=== PATIENT | male | born 1965 | race Caucasian/White ===

== ENCOUNTER 2021-08-15 17:15 | Observation (INO) | payer MEDICAID ==
[~2021-08-15] VITALS: Ht 190.5 cm; Wt 100.7 kg
[2021-08-15 17:42] LABS: HEMATOCRIT 35 % (40-54); HEMOGLOBIN 11.5 g/dL (13.3-17.7); MEAN CORPUSCULAR HEMOGLOBIN 25 pg (25-34); MEAN CORPUSCULAR HGB CONC 33 g/dL (32-36); MEAN CORPUSCULAR VOLUME 77 fL (80-99); WHITE BLOOD COUNT 6.6 10^3/uL (4.3-11.0)
[2021-08-15 17:43] LABS: BASOPHILS # (AUTO) 0.1 10^3/uL (0.0-0.1); BASOPHILS % (AUTO) 1 % (0-10); EOSINOPHILS # (AUTO) 0.3 10^3/uL (0.0-0.3); EOSINOPHILS % (AUTO) 4 % (0-10); LYMPHOCYTES % (AUTO) 45 % (12-44); MONOCYTES # (AUTO) 0.5 X 10^3 (0.0-1.0); MONOCYTES % (AUTO) 7 % (0-12); NEUTROPHILS # (AUTO) 2.9 X 10^3 (1.8-7.8); NEUTROPHILS % (AUTO) 44 % (42-75); PLATELET COUNT 390 10^3/uL (130-400)
[2021-08-15] MEDS ORDERED: RT-ALBUTEROL/IPRATROPIUM 3 ML (DUONEB) VIAL INH ONE (17:45)
[2021-08-15] MEDS ORDERED: NS IV 1000 ML 1,000 ML IV SCH ×2 (17:45)
--- NOTE | 2021-08-15 17:49 | ED Cardiac General ---
History of Present Illness General Chief Complaint: Respiratory Problems Stated Complaint: SOB,FATIGUE Nursing Triage Note: PT AMBULATE TO ROOM FS06 WITH C/O SOB X1 MONTH THAT IS WORSE AT NIGHT. PT STATES IT IS WORSE TODAY. History of Present Illness Date Seen by Provider: Aug 15, 2021 Time Seen by Provider: 17:25 Initial Comments 55 yr M with PMH of open heart surgery when he was younger, multiple stents, last stent in 2012 or 2013. Pt has been having SOB over the past 1 month which has been worse at night when he lays down, but it has been worsening further today. Pt does not use home oxygen. Pt feels chest pressure but denies actual chest pain. Pt's cardiologists are in [place]. Pt's states he is very resistant to seeing doctors or going to the hospital. Pt's also states pt's dog in an accident a week ago, and he has also been feeling anxious and depressed since then, with the anxiety adding to the symptoms. Upon further questioning, it doesn't appear that the pt is consistently compliant with all his medications. Denies fever, recent COVID, nausea, vomiting, abdominal pain, diarrhea, headache, dizziness, cough, URI symptoms, recent illness, sick contacts. Allergies and Home Medications Allergies Coded Allergies: alprazolam (Verified Allergy, Unknown, 08/15/21) ketorolac (Verified Allergy, Unknown, 08/15/21) Patient Home Medication List Home Medication List Reviewed: Yes Review of Systems Review of Systems Constitutional: no symptoms reported EENTM: No Symptoms Reported Respiratory: Orthopnea, Shortness of Air, SOA With Exertion Cardiovascular: Chest Pain Gastrointestinal: No Symptoms Reported Genitourinary: No Symptoms Reported Musculoskeletal: no symptoms reported Skin: no symptoms reported Psychiatric/Neurological: No Symptoms Reported Endocrine: No Symptoms Reported Hematologic/Lymphatic: No Symptoms Reported Past Mwhklqh-Rbfoqg-Mmzqji Hx Patient Social History Tobacco Use?: Yes Tobacco type used: Cigarettes Smoking Status: Never a Smoker Smokeless Tobacco Frequency: Never a User Use of E-Cig and/or Vaping dev: No Use of E-Cig and/or Vaping Cl: Never a User Substance use?: Yes Substance type: Marijuana Substance frequency: Daily Alcohol Use?: No Pt feels they are or have been: No Physical Exam Vital Signs Vital Signs - First Documented 08/15/21 17:20 Temp 36.6 Pulse 74 Resp 18 B/P (MAP) 142/85 (104) Pulse Ox 100 O2 Delivery Room Air Capillary Refill : Less Than 3 Seconds Height, Weight, BMI Height: '" Weight: lbs. oz. kg; 28.00 BMI Method: General Appearance: Mild Distress, Obese HEENT: PERRL/EOMI, TMs Normal, Pharynx Normal Neck: Full Range of Motion, Normal Inspection, Non Tender, Supple Respiratory: Chest Non Tender, No Accessory Muscle Use, Rales, Wheezing Cardiovascular: Regular Rate, Rhythm, No Edema, Normal Peripheral Pulses Gastrointestinal: Normal Bowel Sounds, No Organomegaly, No Pulsatile Mass, Non Tender, Soft Extremity: Normal Capillary Refill, Normal Range of Motion Neurologic/Psychiatric: Alert, Oriented x3, No Motor/Sensory Deficits, Normal Mood/Affect Skin: Normal Color Focused Exam Lactate Level 08/15/21 18:19: Lactic Acid Level 1.73 Lactic Acid Level Laboratory Tests Test 08/15/21 18:19 Lactic Acid Level 1.73 MMOL/L (0.50-2.00) Progress/Results/Core Measures Results/Orders Lab Results Laboratory Tests Test 08/15/21 17:35 08/15/21 18:19 08/15/21 19:04 Range/Units White Blood Count 6.6 4.3-11.0 10^3/uL Red Blood Count 4.59 4.30-5.52 10^6/uL Hemoglobin 11.5 L 13.3-17.7 g/dL Hematocrit 35 L 40-54 % Mean Corpuscular Volume 77 L 80-99 fL Mean Corpuscular Hemoglobin 25 25-34 pg Mean Corpuscular Hemoglobin Concent 33 32-36 g/dL Red Cell Distribution Width 17.2 H 10.0-14.5 % Platelet Count 390 130-400 10^3/uL Mean Platelet Volume 9.0 9.0-12.2 fL Immature Granulocyte % (Auto) 0 % Neutrophils (%) (Auto) 44 42-75 % Lymphocytes (%) (Auto) 45 H 12-44 % Monocytes (%) (Auto) 7 0-12 % Eosinophils (%) (Auto) 4 0-10 % Basophils (%) (Auto) 1 0-10 % Neutrophils # (Auto) 2.9 1.8-7.8 X 10^3 Lymphocytes # (Auto) 3.0 1.0-4.0 X 10^3 Monocytes # (Auto) 0.5 0.0-1.0 X 10^3 Eosinophils # (Auto) 0.3 0.0-0.3 10^3/uL Basophils # (Auto) 0.1 0.0-0.1 10^3/uL Immature Granulocyte # (Auto) 0.0 0.0-0.1 10^3/uL Prothrombin Time 12.3 12.2-14.7 SEC INR Comment 0.9 0.8-1.4 Activated Partial Thromboplast Time 24 24-35 SEC D-Dimer 1.06 H 0.00-0.49 UG/ML Sodium Level 136 135-145 MMOL/L Potassium Level 4.4 3.6-5.0 MMOL/L Chloride Level 103 98-107 MMOL/L Carbon Dioxide Level 18 L 21-32 MMOL/L Anion Gap 15 H 5-14 MMOL/L Blood Urea Nitrogen 20 H 7-18 MG/DL Creatinine 1.10 0.60-1.30 MG/DL Estimat Glomerular Filtration Rate 80 BUN/Creatinine Ratio 18 Glucose Level 135 H 70-105 MG/DL Calcium Level 9.9 8.5-10.1 MG/DL Corrected Calcium 10.0 8.5-10.1 MG/DL Magnesium Level 1.6 1.6-2.4 MG/DL Total Bilirubin 0.3 0.1-1.0 MG/DL Aspartate Amino Transf (AST/SGOT) 16 5-34 U/L Alanine Aminotransferase (ALT/SGPT) 10 0-55 U/L Alkaline Phosphatase 101 40-136 U/L Troponin I < 0.30 <0.30 NG/ML Pro-B-Type Natriuretic Peptide 198.6 H <75.0 PG/ML Total Protein 7.1 6.4-8.2 GM/DL Albumin 3.9 3.2-4.5 GM/DL Lactic Acid Level 1.73 0.50-2.00 MMOL/L Urine Color YELLOW Urine Clarity CLEAR Urine pH 6.5 5-9 Urine Specific [place] 1.015 L 1.016-1.022 Urine Protein NEGATIVE NEGATIVE Urine Glucose (UA) NEGATIVE NEGATIVE Urine Ketones NEGATIVE NEGATIVE Urine Nitrite NEGATIVE NEGATIVE Urine Bilirubin NEGATIVE NEGATIVE Urine Urobilinogen 0.2 < = 1.0 MG/DL Urine Leukocyte Esterase NEGATIVE NEGATIVE Urine RBC (Auto) NEGATIVE NEGATIVE Urine RBC 10-25 H /HPF Urine WBC NONE /HPF Urine Crystals PRESENT H /LPF Urine Calcium Oxalate Crystals MODERATE H /LPF Urine Bacteria TRACE /HPF Urine Casts NONE /LPF Urine Mucus LARGE H /LPF Urine Culture Indicated NO Urine Opiates Screen NEGATIVE NEGATIVE Urine Oxycodone Screen NEGATIVE NEGATIVE Urine Methadone Screen NEGATIVE NEGATIVE Urine Propoxyphene Screen NEGATIVE NEGATIVE Urine Barbiturates Screen NEGATIVE NEGATIVE Ur Tricyclic Antidepressants Screen NEGATIVE NEGATIVE Urine Phencyclidine Screen NEGATIVE NEGATIVE Urine Amphetamines Screen POSITIVE H NEGATIVE Urine Methamphetamines Screen POSITIVE H NEGATIVE Urine Benzodiazepines Screen NEGATIVE NEGATIVE Urine Cocaine Screen NEGATIVE NEGATIVE Urine Cannabinoids Screen POSITIVE H NEGATIVE My Orders Orders - KARI MELISSA MD Cbc With Automated Diff (08/15/21 17:38) Magnesium (08/15/21 17:38) Chest 1 View Ap/Pa Only (08/15/21 17:38) Ekg Tracing (08/15/21 17:38) Comprehensive Metabolic Panel (08/15/21 17:38) Protime With Inr (08/15/21 17:38) Partial Thromboplastin Time (08/15/21 17:38) O2 (08/15/21 17:38) Monitor-Rhythm Ecg Trace Only (08/15/21 17:38) Ed Iv/Invasive Line Start (08/15/21 17:38) Fibrin Degradation Products (08/15/21 17:38) Troponin I Fs (08/15/21 17:38) Probnp Fs (08/15/21 17:38) Albuterol/Ipra Inhalation Soln (Duoneb I (08/15/21 17:45) Svn Small Volume Nebulizer (08/15/21 17:39) Ed Iv/Invasive Line Start (08/15/21 17:40) Ns Iv 1000 Ml (Sodium Chloride 0.9%) (08/15/21 17:45) Ns Iv 1000 Ml (Sodium Chloride 0.9%) (08/15/21 17:45) Nitroglycerin 0.4 Mg Btl 25's (Nitrostat (08/15/21 18:00) Clopidogrel Tablet (Plavix Tablet) (08/15/21 18:00) Ua Culture If Indicated (08/15/21 18:13) Drug Screen Stat (Urine) (08/15/21 18:13) Lactic Acid Analyzer (08/15/21 18:13) Ct Angio Chest W (08/15/21 18:15) Iohexol Injection (Omnipaque 350 Mg/Ml 1 (08/15/21 18:30) Received Contrast (Hold Metformin- Contr (08/15/21 18:30) Sodium Chloride Flush (Catheter Flush Sy (08/15/21 18:30) Ns (Ivpb) (Sodium Chloride 0.9% Ivpb Bag (08/15/21 18:30) Troponin I Fs (08/15/21 19:14) Ekg Tracing (08/15/21 19:15) Albuterol/Ipra Inhalation Soln (Duoneb I (08/15/21 19:20) Svn Small Volume Nebulizer (08/15/21 19:20) Medications Given in ED Current Medications Medications Dose Ordered Sig/Shweta Route Start Time Stop Time Status Last Admin Dose Admin Albuterol/ Ipratropium 3 ml ONCE ONCE INH 08/15/21 17:45 08/15/21 17:46 DC 08/15/21 17:46 3 ML Clopidogrel Bisulfate 300 mg ONCE ONCE PO 08/15/21 18:00 08/15/21 18:01 DC 08/15/21 17:58 300 MG Iohexol 100 ml ONCE ONCE IV 08/15/21 18:30 08/15/21 18:31 DC 08/15/21 18:56 100 ML Nitroglycerin 0.4 mg UD PRN SL 08/15/21 18:00 08/15/21 17:58 0.4 MG Sodium Chloride 10 ml NEEDED PRN IV 08/15/21 18:30 08/15/21 18:56 10 ML Sodium Chloride 100 ml ONCE ONCE IV 08/15/21 18:30 08/15/21 18:31 DC 08/15/21 18:56 100 ML Vital Signs/I&O 08/15/21 08/15/21 08/15/21 17:20 17:20 19:00 Temp 36.6 Pulse 74 72 Resp 18 15 B/P (MAP) 142/85 (104) 127/109 Pulse Ox 100 98 O2 Delivery Room Air Room Air Room Air Blood Pressure Mean: 104 Progress Progress Note : Progress Note 1. SOB/ CHEST PRESSURE: COPD EXACERBATION vs CAD - Pt has a PACEMAKER - CXR: COPD/ EKG - Troponin normal - Labs: pro-BNP elevated/ UDS/ UA - Pt is allergic tp NSAIDs and Xanax, so gave Clopidogrel 300mg STAT and Nitrate s.l. STAT - NS IVF - Duo Neb STAT & NC O2: 2L: Pt feels a little better with both of these. - ProBNP elevated: 198 - Nitrate 0.4 s.l. STAT with some improvement in symptoms - Pt does not appear to be fluid overloaded on exam - Pt will need transfer to [place] for cardiology consult, pacemaker interrogation, telemetry monitoring. Pt and agree to plan.Accepted by hospitalist 2. ELEVATED D-DIMER: - D-dimer is 1.06 - CTA CHEST: no PE - Pt will need bilateral doppler u/s at [place]. Initial ECG Impression Date: Aug 15, 2021 Initial ECG Impression Time: 17:32 Initial ECG Rate: 63 Initial ECG Rhythm: Normal Sinus Initial ECG Intervals: FL (possible R wave progression) Initial ECG Impression: Nonspecific Changes Initial ECG Comparisson: No Previous ECG Available Diagnostic Imaging Diagonstic Imaging: Xray, CT Plain Films/CT/US/NM/MRI: chest Comments [facility]. [place], [place] NAME: WENDY SÁNCHEZ [facility] REC#: [id number] PT STATUS: REG ER : 1965 PHYSICIAN: KARI MELISSA MD ADMIT DATE: 08/15/21/ER FS Signed Date of Exam:08/15/21 CHEST 1 VIEW AP/PA ONLY INDICATION: Shortness of breath and fatigue. COMPARISON: No comparison available. FINDINGS: The patient is status post sternotomy. A pacemaker device is also present. Heart size is appropriate without evidence of current edema or failure. There is flattening of the diaphragms compatible with air trapping. There is a granuloma at the left lung base. There are no findings of pneumonia or an effusion. There is no pneumothorax. Prior left shoulder arthroplasty noted. There is no acute osseous abnormality. IMPRESSION: 1. Apparent features of COPD without acute superimposed cardiopulmonary process. There are no findings of pneumonia or edema. 2. Previous operative changes of sternotomy. Pacemaker device is also present. Dictated by: Dictated on workstation # [id number] Dict: 08/15/211800 Trans: 08/15/211821 PJE [id number] Interpreted by: GINA RICHARD MD Electronically signed by: GINA RICHARD MD 08/15/211821 NAME: WENDY SÁNCHEZ [facility] REC#: [id number] PT STATUS: REG ER : 1965 PHYSICIAN: KARI MELISSA MD ADMIT DATE: 08/15/21/ER FS Draft Date of Exam:08/15/21 CT ANGIO CHEST W PROCEDURE: CT angiography of the chest with contrast. TECHNIQUE: Multiple contiguous axial images were obtained through the chest after uneventful bolus administration of intravenous contrast. 3D reconstructed CTA MIP acquisitions were also performed. Auto Exposure Controls were utilized during the CT exam to meet ALARA standards for radiation dose reduction. INDICATION: Elevated d-dimer. Shortness of breath. Evaluate for pulmonary embolism. COMPARISON: Chest radiograph from earlier in the same day. FINDINGS: There are no CT angiographic findings of a filling defect within the pulmonary arteries to suggest a pulmonary embolism. There is no evidence of right ventricular strain. There is no aortic dissection or aneurysm. There is mild aortic atherosclerosis. Heart size appears appropriate. There is no pericardial collection. Pacemaker device is present. There are small calcified left hilar and subcarinal lymph nodes. There is no pathologic adenopathy. There are apparent background features of mild centrilobular emphysema with some mild pulmonary hyperinflation. There is no suspicious nodule or mass. There is a calcified granuloma within the left lower lobe. There are no findings of pneumonia, effusion or pneumothorax. The upper abdomen demonstrates no acute process. There is a small hiatal hernia. There are no findings of an acute osseous abnormality within the thorax. There are degenerative endplate changes throughout the thoracic spine. IMPRESSION: 1. No CT angiographic evidence of pulmonary embolism. 2. No acute aortic syndrome. 3. Pulmonary hyperinflation secondary to COPD without evidence of pneumonia or edema. 4. Evidence of prior granulomatous exposure. 5. No findings of an acute osseous abnormality. Dictated on workstation # [id number] Dict: 08/15/211900 Trans: 08/15/211914 PJE [id number] Departure Impression Primary Impression: Shortness of breath Additional Impressions: Chest pressure COPD exacerbation Elevated d-dimer Elevated brain natriuretic peptide (BNP) level Disposition: 30 STILL A PATIENT Condition: Stable Admissions Decision to Admit Reason: Admit from ER (General) Decision to Admit/Date: Aug 15, 2021 Time/Decision to Admit Time: 18:30 Transfer Transfer Reason: Exceeds level of care Time Spoke to Accepting Phy: 19:21 Transfer Progress Notes Discussed with Dr Hodges and accepted for transfer to [facility]- telemetry Transfer Facility: [facility] Method of Transfer: EMS Departure-Patient Inst. Referrals: JOSE ANTONIO PETERSON MD (PCP/Family) Primary Care Physician KARI MELISSA MD Aug 15, 2021 17:49
[2021-08-15 17:57] LABS: ALBUMIN 3.9 GM/DL (3.2-4.5); BILIRUBIN,TOTAL 0.3 MG/DL (0.1-1.0); CALCIUM 9.9 MG/DL (8.5-10.1); CREATININE SERUM 1.1 MG/DL (0.60-1.30); MAGNESIUM 1.6 MG/DL (1.6-2.4); POTASSIUM 4.4 MMOL/L (3.6-5.0); TOTAL PROTEIN 7.1 GM/DL (6.4-8.2)
[2021-08-15] MEDS ORDERED: NITROGLYCERIN 0.4 MG SL TABS BTL 25'S SL PRN ×2 (18:00→21:45)
[2021-08-15] MEDS ORDERED: CLOPIDOGREL 300 MG (PLAVIX) TABLET PO ONE (18:00)
[2021-08-15 18:05] LABS: PROTHROMBIN TIME PATIENT 12.3 SEC (12.2-14.7)
[2021-08-15 18:06] LABS: INR 0.9 (0.8-1.4)
--- NOTE | 2021-08-15 18:12 | Diagnostic Imaging Report ---
INDICATION: Shortness of breath and fatigue. COMPARISON: No comparison available. FINDINGS: The patient is status post sternotomy. A pacemaker device is also present. Heart size is appropriate without evidence of current edema or failure. There is flattening of the diaphragms compatible with air trapping. There is a granuloma at the left lung base. There are no findings of pneumonia or an effusion. There is no pneumothorax. Prior left shoulder arthroplasty noted. There is no acute osseous abnormality. IMPRESSION: 1. Apparent features of COPD without acute superimposed cardiopulmonary process. There are no findings of pneumonia or edema. 2. Previous operative changes of sternotomy. Pacemaker device is also present. Dictated by: Dictated on workstation # [id number]
[2021-08-15] MEDS ORDERED: IOHEXOL 350 MG/ML 150 ML (OMNIPAQUE 350) VIAL IV ONE (18:30)
[2021-08-15] MEDS ORDERED: NS 100 ML (IVPB) BAG IV ONE (18:30)
[2021-08-15] MEDS ORDERED: CATHETER FLUSH 10 ML SYR IV PRN (18:30)
[2021-08-15] MEDS ORDERED: HOLD METFORMIN - RECEIVED CONTRAST 20 ML VIAL IV SCH (18:30)
[2021-08-15 19:06] LABS: BILIRUBIN,URINE NEGATIVE (NEGATIVE); CLARITY,URINE CLEAR; COLOR,URINE YELLOW; GLUCOSE, URINE (UA) NEGATIVE (NEGATIVE); KETONES,URINE NEGATIVE (NEGATIVE); LEUKOCYTE ESTERASE ,URINE NEGATIVE (NEGATIVE); NITRITE,URINE NEGATIVE (NEGATIVE); PH,URINE 6.5 (5-9); PROTEIN,URINE NEGATIVE (NEGATIVE)
[2021-08-15 19:12] LABS: BACTERIA,URINE TRACE /HPF; CALCIUM OXALATE CRYSTALS,UR MODERATE /LPF
--- NOTE | 2021-08-15 19:15 | Diagnostic Imaging Report ---
PROCEDURE: CT angiography of the chest with contrast. TECHNIQUE: Multiple contiguous axial images were obtained through the chest after uneventful bolus administration of intravenous contrast. 3D reconstructed CTA MIP acquisitions were also performed. Auto Exposure Controls were utilized during the CT exam to meet ALARA standards for radiation dose reduction. INDICATION: Elevated d-dimer. Shortness of breath. Evaluate for pulmonary embolism. COMPARISON: Chest radiograph from earlier in the same day. FINDINGS: There are no CT angiographic findings of a filling defect within the pulmonary arteries to suggest a pulmonary embolism. There is no evidence of right ventricular strain. There is no aortic dissection or aneurysm. There is mild aortic atherosclerosis. Heart size appears appropriate. There is no pericardial collection. Pacemaker device is present. There are small calcified left hilar and subcarinal lymph nodes. There is no pathologic adenopathy. There are apparent background features of mild centrilobular emphysema with some mild pulmonary hyperinflation. There is no suspicious nodule or mass. There is a calcified granuloma within the left lower lobe. There are no findings of pneumonia, effusion or pneumothorax. The upper abdomen demonstrates no acute process. There is a small hiatal hernia. There are no findings of an acute osseous abnormality within the thorax. There are degenerative endplate changes throughout the thoracic spine. IMPRESSION: 1. No CT angiographic evidence of pulmonary embolism. 2. No acute aortic syndrome. 3. Pulmonary hyperinflation secondary to COPD without evidence of pneumonia or edema. 4. Evidence of prior granulomatous exposure. 5. No findings of an acute osseous abnormality. Dictated by: Dictated on workstation # [id number]
[2021-08-15 19:19] LABS: AMPHETAMINE SCREEN, URINE POSITIVE (NEGATIVE); BARBITURATE SCREEN URINE NEGATIVE (NEGATIVE); BENZODIAZEPINES SCREEN URINE NEGATIVE (NEGATIVE); CANNABINOID SCREEN, URINE POSITIVE (NEGATIVE); COCAINE SCREEN URINE NEGATIVE (NEGATIVE); METHADONE STAT NEGATIVE (NEGATIVE); METHAMPHETAMINE SCREEN URINE S POSITIVE (NEGATIVE); OPIATE SCREEN URINE NEGATIVE (NEGATIVE); OXYCODONE STAT NEGATIVE (NEGATIVE); PROPOXYPHENE STAT NEGATIVE (NEGATIVE); TRICYCLIC ANTIDEPRESSANTS SCRE NEGATIVE (NEGATIVE)
[2021-08-15] MEDS ORDERED: RT-ALBUTEROL/IPRATROPIUM 3 ML (DUONEB) VIAL INH STA (19:20)
[2021-08-15 20:24] VITALS: BP 157/80
[2021-08-15] MEDS ORDERED: ENOXAPARIN 60 MG/0.6 ML (LOVENOX) SYR SC SCH (21:45)
[2021-08-15] MEDS ORDERED: ASPIRIN 325 MG (5 GR) TABLET PO ONE (21:45)
[2021-08-15] MEDS: NS IV 1000 ML 1,000 ML IV SCH (22:25)
[2021-08-16] MEDS: RT-ALBUTEROL/IPRATROPIUM 3 ML (DUONEB) VIAL INH SCH ×4 (03:00→10:54)
[2021-08-16 05:05] LABS: BASOPHILS # (AUTO) 0.1 10^3/uL (0.0-0.1); BASOPHILS % (AUTO) 1 % (0-10); EOSINOPHILS # (AUTO) 0.3 10^3/uL (0.0-0.3); EOSINOPHILS % (AUTO) 5 % (0-10); HEMATOCRIT 35 % (40-54); LYMPHOCYTES # (AUTO) 2.4 10^3/uL (1.0-4.0); LYMPHOCYTES % (AUTO) 39 % (12-44); MEAN CORPUSCULAR HEMOGLOBIN 25 pg (25-34); MEAN CORPUSCULAR HGB CONC 32 g/dL (32-36); MEAN CORPUSCULAR VOLUME 79 fL (80-99); MEAN PLATELET VOLUME 8.9 fL (9.0-12.2); MONOCYTES # (AUTO) 0.5 10^3/uL (0.0-1.0); MONOCYTES % (AUTO) 8 % (0-12); NEUTROPHILS # (AUTO) 2.8 10^3/uL (1.8-7.8); NEUTROPHILS % (AUTO) 47 % (42-75); PLATELET COUNT 367 10^3/uL (130-400)
[2021-08-16 05:19] LABS: CHLORIDE 110 MMOL/L (98-107)
[2021-08-16 05:20] LABS: SODIUM 138 MMOL/L (135-145)
[2021-08-16 05:21] LABS: GLUCOSE 93 MG/DL (70-105)
[2021-08-16 05:23] LABS: CARBON DIOXIDE 18 MMOL/L (21-32)
[2021-08-16 05:25] LABS: CREATININE SERUM 0.94 MG/DL (0.60-1.30); GFR ESTIMATED 97
[2021-08-16 05:26] LABS: BUN/CREATININE RATIO 17
[2021-08-16] MEDS: NS IV 1000 ML 1,000 ML IV SCH (07:10)
--- NOTE | 2021-08-16 08:50 | Consultation-Cardiology ---
HPI-Cardiology Cardiology Consultation Date of Consultation 08/16/21 Date of Admission Time Seen by Provider: 08:47 Indication: Shortness of breath HPI 55 years old gentleman with extensive cardiac history, patient reporting that he has a total of [address] Trevino in [place], has been having increasing dyspnea mainly at night when he lay down flat. Denied any chest pain. No palpitation. No syncope. Came into the emergency room and he was admitted, monitored overnight, cardiac enzymes were negative. Home Medications & Allergies Allergies: Coded Allergies: alprazolam (Verified Allergy, Unknown, 08/15/21) ketorolac (Verified Allergy, Unknown, 08/15/21) Home Medication List Reviewed: Yes [id number] Hx Patient Social History Smoking Status: Light Tobacco Smoker Have you traveled recently?: No Alcohol Use?: No Substance type: Amphetamines, Methamphetamine, Marijuana Immunizations Up To Date Date of Influenza Vaccine: Mar 26, 2021 Past Medical History Discussed below Family Medical History Family Medical Hx Noncontributory Review of Systems-General Review of Systems Constitutional: no symptoms reported EENTM: see HPI, no symptoms reported Respiratory: see HPI; No cough, No dyspnea on exertion, No hemoptysis; orthopnea; No phlegm, No short of breath, No stridor, No wheezing, No other Cardiovascular: see HPI; No chest pain, No edema, No Hx of Intervention, No palpitations, No syncope, No vascular heart diseas, No other Gastrointestinal: no symptoms reported, see HPI Genitourinary: no symptoms reported, see HPI Musculoskeletal: no symptoms reported Skin: no symptoms reported Psychiatric/Neurological: No Symptoms Reported Reviewed Test Results Reviewed Test Results Lab Laboratory Tests Test 08/15/21 17:35 08/15/21 18:19 08/15/21 19:04 08/15/21 19:25 Range/Units White Blood Count 6.6 4.3-11.0 10^3/uL Red Blood Count 4.59 4.30-5.52 10^6/uL Hemoglobin 11.5 L 13.3-17.7 g/dL Hematocrit 35 L 40-54 % Mean Corpuscular Volume 77 L 80-99 fL Mean Corpuscular Hemoglobin 25 25-34 pg Mean Corpuscular Hemoglobin Concent 33 32-36 g/dL Red Cell Distribution Width 17.2 H 10.0-14.5 % Platelet Count 390 130-400 10^3/uL Mean Platelet Volume 9.0 9.0-12.2 fL Immature Granulocyte % (Auto) 0 % Neutrophils (%) (Auto) 44 42-75 % Lymphocytes (%) (Auto) 45 H 12-44 % Monocytes (%) (Auto) 7 0-12 % Eosinophils (%) (Auto) 4 0-10 % Basophils (%) (Auto) 1 0-10 % Neutrophils # (Auto) 2.9 1.8-7.8 X 10^3 Lymphocytes # (Auto) 3.0 1.0-4.0 X 10^3 Monocytes # (Auto) 0.5 0.0-1.0 X 10^3 Eosinophils # (Auto) 0.3 0.0-0.3 10^3/uL Basophils # (Auto) 0.1 0.0-0.1 10^3/uL Immature Granulocyte # (Auto) 0.0 0.0-0.1 10^3/uL Prothrombin Time 12.3 12.2-14.7 SEC INR Comment 0.9 0.8-1.4 Activated Partial Thromboplast Time 24 24-35 SEC D-Dimer 1.06 H 0.00-0.49 UG/ML Sodium Level 136 135-145 MMOL/L Potassium Level 4.4 3.6-5.0 MMOL/L Chloride Level 103 98-107 MMOL/L Carbon Dioxide Level 18 L 21-32 MMOL/L Anion Gap 15 H 5-14 MMOL/L Blood Urea Nitrogen 20 H 7-18 MG/DL Creatinine 1.10 0.60-1.30 MG/DL Estimat Glomerular Filtration Rate 80 BUN/Creatinine Ratio 18 Glucose Level 135 H 70-105 MG/DL Calcium Level 9.9 8.5-10.1 MG/DL Corrected Calcium 10.0 8.5-10.1 MG/DL Magnesium Level 1.6 1.6-2.4 MG/DL Total Bilirubin 0.3 0.1-1.0 MG/DL Aspartate Amino Transf (AST/SGOT) 16 5-34 U/L Alanine Aminotransferase (ALT/SGPT) 10 0-55 U/L Alkaline Phosphatase 101 40-136 U/L Troponin I < 0.30 < 0.30 <0.30 NG/ML Pro-B-Type Natriuretic Peptide 198.6 H <75.0 PG/ML Total Protein 7.1 6.4-8.2 GM/DL Albumin 3.9 3.2-4.5 GM/DL Lactic Acid Level 1.73 0.50-2.00 MMOL/L Urine Color YELLOW Urine Clarity CLEAR Urine pH 6.5 5-9 Urine Specific [place] 1.015 L 1.016-1.022 Urine Protein NEGATIVE NEGATIVE Urine Glucose (UA) NEGATIVE NEGATIVE Urine Ketones NEGATIVE NEGATIVE Urine Nitrite NEGATIVE NEGATIVE Urine Bilirubin NEGATIVE NEGATIVE Urine Urobilinogen 0.2 < = 1.0 MG/DL Urine Leukocyte Esterase NEGATIVE NEGATIVE Urine RBC (Auto) NEGATIVE NEGATIVE Urine RBC 10-25 H /HPF Urine WBC NONE /HPF Urine Crystals PRESENT H /LPF Urine Calcium Oxalate Crystals MODERATE H /LPF Urine Bacteria TRACE /HPF Urine Casts NONE /LPF Urine Mucus LARGE H /LPF Urine Culture Indicated NO Urine Opiates Screen NEGATIVE NEGATIVE Urine Oxycodone Screen NEGATIVE NEGATIVE Urine Methadone Screen NEGATIVE NEGATIVE Urine Propoxyphene Screen NEGATIVE NEGATIVE Urine Barbiturates Screen NEGATIVE NEGATIVE Ur Tricyclic Antidepressants Screen NEGATIVE NEGATIVE Urine Phencyclidine Screen NEGATIVE NEGATIVE Urine Amphetamines Screen POSITIVE H NEGATIVE Urine Methamphetamines Screen POSITIVE H NEGATIVE Urine Benzodiazepines Screen NEGATIVE NEGATIVE Urine Cocaine Screen NEGATIVE NEGATIVE Urine Cannabinoids Screen POSITIVE H NEGATIVE Test 08/16/21 04:18 Range/Units White Blood Count 6.0 4.3-11.0 10^3/uL Red Blood Count 4.40 4.30-5.52 10^6/uL Hemoglobin 11.0 L 13.3-17.7 g/dL Hematocrit 35 L 40-54 % Mean Corpuscular Volume 79 L 80-99 fL Mean Corpuscular Hemoglobin 25 25-34 pg Mean Corpuscular Hemoglobin Concent 32 32-36 g/dL Red Cell Distribution Width 16.8 H 10.0-14.5 % Platelet Count 367 130-400 10^3/uL Mean Platelet Volume 8.9 L 9.0-12.2 fL Immature Granulocyte % (Auto) 0 % Neutrophils (%) (Auto) 47 42-75 % Lymphocytes (%) (Auto) 39 12-44 % Monocytes (%) (Auto) 8 0-12 % Eosinophils (%) (Auto) 5 0-10 % Basophils (%) (Auto) 1 0-10 % Neutrophils # (Auto) 2.8 1.8-7.8 10^3/uL Lymphocytes # (Auto) 2.4 1.0-4.0 10^3/uL Monocytes # (Auto) 0.5 0.0-1.0 10^3/uL Eosinophils # (Auto) 0.3 0.0-0.3 10^3/uL Basophils # (Auto) 0.1 0.0-0.1 10^3/uL Immature Granulocyte # (Auto) 0.0 0.0-0.1 10^3/uL Sodium Level 138 135-145 MMOL/L Potassium Level 4.0 3.6-5.0 MMOL/L Chloride Level 110 H 98-107 MMOL/L Carbon Dioxide Level 18 L 21-32 MMOL/L Anion Gap 10 5-14 MMOL/L Blood Urea Nitrogen 16 7-18 MG/DL Creatinine 0.94 0.60-1.30 MG/DL Estimat Glomerular Filtration Rate 97 BUN/Creatinine Ratio 17 Glucose Level 93 70-105 MG/DL Calcium Level 9.0 8.5-10.1 MG/DL Troponin I < 0.028 <0.028 NG/ML Physical Exam Physical Exam Vital Signs Vital Signs - First Documented 08/15/21 08/15/21 17:20 19:00 Temp 36.6 Pulse 74 Resp 18 B/P (MAP) 142/85 (104) Pulse Ox 100 O2 Delivery Room Air O2 Flow Rate 2.00 FiO2 100 Capillary Refill : Less Than 3 Seconds Height, Weight, BMI Height: '" Weight: lbs. oz. kg; 27.74 BMI Method: General Appearance: Mild Distress, Obese Eyes: Bilateral Eye Normal Inspection, Bilateral Eye PERRL, Bilateral Eye EOMI HEENT: PERRL/EOMI, TMs Normal, Pharynx Normal Neck: Full Range of Motion, Normal Inspection, Non Tender, Supple Respiratory: Chest Non Tender, No Accessory Muscle Use, Rales, Wheezing Cardiovascular: Regular Rate, Rhythm, No Edema, Normal Peripheral Pulses Gastrointestinal: Normal Bowel Sounds, No Organomegaly, No Pulsatile Mass, Non Tender, Soft Back: Normal Inspection, No CVA Tenderness, No Vertebral Tenderness Extremity: Normal Capillary Refill, Normal Range of Motion Neurologic/Psychiatric: Alert, Oriented x3, No Motor/Sensory Deficits, Normal Mood/Affect Skin: Normal Color Lymphatic: No Adenopathy A/P-Cardiology Admission Diagnosis Orthopnea Coronary artery disease Hypertension Illicit drug use Assessment/Plan Orthopnea, worsening dyspnea at night. BNP 198. I will start diuretics and evaluate 2D echocardiogram Coronary artery disease, patient reporting history of a total of [address] Trevino in [place] No recent cardiac work-up. Cardiac enzymes were negative. No acute EKG changes. Recommended doing stress test which can be done as an outpatient Hypertension, restart home medication monitor blood pressure Questionable hyperlipidemia, evaluate lipid profile, restart home medications Illicit drug use, patient reporting using marijuana. He was tested positive for cannabinoids, methamphetamine and amphetamine. He denied any use of methamphetamine Tobaccoism, educated on smoking cessation TELMA ESQUIVEL MD Aug 16, 2021 08:50
--- NOTE | 2021-08-16 08:58 | Diagnostic Imaging Report ---
INDICATION: Elevated D-dimer. COMPARISON: None. TECHNIQUE: Duplex, grayscale, and color-flow imaging of the bilateral lower extremity venous system was performed. FINDINGS: The common femoral vein, superficial femoral vein, profunda femoris, and popliteal veins are normal. These vessels show normal compressibility, color flow, and Doppler augmentation. The deep calf veins, although not very well seen, demonstrate no distinct intraluminal thrombus. IMPRESSION: Negative venous Doppler of the bilateral lower extremities. Dictated by: Dictated on workstation # [id number]
[2021-08-16] MEDS ORDERED: ASPIRIN E.C. 81 MG (ECOTRIN) TAB PO SCH (09:00)
[2021-08-16] MEDS ORDERED: ENOXAPARIN 100 MG/1 ML (LOVENOX) SYR SC SCH (09:00)
[2021-08-16] MEDS ORDERED: ENOXAPARIN 120 MG/0.8 ML (LOVENOX) SC SCH (09:00)
[2021-08-16] MEDS ORDERED: PANTOPRAZOLE 40 MG (PROTONIX) TAB PO SCH (09:00)
[2021-08-16] MEDS ORDERED: FUROSEMIDE 40 MG/4 ML INJ (LASIX) IVP ONE (09:00)
[2021-08-16] MEDS ORDERED: MTP25TSR PO (10:42)
[2021-08-16] MEDS ORDERED: MIRT45TA75 PO (10:42)
[2021-08-16] MEDS ORDERED: OMEP40CA6 PO (10:42)
[2021-08-16] MEDS ORDERED: ASPI-999 PO (10:42)
[2021-08-16] MEDS ORDERED: BUSP15TA60 PO (10:42)
[2021-08-16] MEDS ORDERED: NITR0.4T39 SL (10:42)
[2021-08-16] MEDS ORDERED: VNL37.5T PO (10:42)
--- NOTE | 2021-08-16 12:18 | Discharge Summary ---
Discharge Summary Hospital Course Problems/Dx: (1) Chest pain Status: Acute (2) CAD (coronary artery disease) Status: Acute Hospital Course Date of Admission: Aug 15, 2021 at 21:07 Admission Diagnosis : Chest pain Family Physician/Provider: Tao Delgadillo MD Date of Discharge: 08/16/21 Discharge Diagnosis: Chest pain Hospital Course: Miguel Medeiros is a 55 year old male with PMH CAD, HTN, tobacco abuse, who presented with chest pain. Cardiology was consulted and assisted with his care. His troponins remained within normal limits. His echo was unremarkable. He should follow up with his economic development specialist, Dr. Trevino. His drug screen was positive for amphetamine and methamphetamine. He was advised to abstain though he denied methamphetamine use. He does smoke and was advised to quit. His chest pain and shortness of breath resolved and he was discharged home in stable condition. Labs and Pending Lab Test: Laboratory Tests 08/15/21 17:35: White Blood Count 6.6, Red Blood Count 4.59, Hemoglobin 11.5L, Hematocrit 35L, Mean Corpuscular Volume 77L, Mean Corpuscular Hemoglobin 25, Mean Corpuscular Hemoglobin Concent 33, Red Cell Distribution Width 17.2H, Platelet Count 390, Mean Platelet Volume 9.0, Immature Granulocyte % (Auto) 0, Neutrophils (%) (Auto) 44, Lymphocytes (%) (Auto) 45H, Monocytes (%) (Auto) 7, Eosinophils (%) (Auto) 4, Basophils (%) (Auto) 1, Neutrophils # (Auto) 2.9, Lymphocytes # (Auto) 3.0, Monocytes # (Auto) 0.5, Eosinophils # (Auto) 0.3, Basophils # (Auto) 0.1, Immature Granulocyte # (Auto) 0.0, Prothrombin Time 12.3, INR Comment 0.9, Activated Partial Thromboplast Time 24, D-Dimer 1.06H, Sodium Level 136, Potassium Level 4.4, Chloride Level 103, Carbon Dioxide Level 18L, Anion Gap 15H , Blood Urea Nitrogen 20H, Creatinine 1.10, Estimat Glomerular Filtration Rate 80, BUN/Creatinine Ratio 18, Glucose Level 135H, Calcium Level 9.9, Corrected Calcium 10.0, Magnesium Level 1.6, Total Bilirubin 0.3, Aspartate Amino Transf (AST/SGOT) 16, Alanine Aminotransferase (ALT/SGPT) 10, Alkaline Phosphatase 101, Troponin I < 0.30, Pro-B-Type Natriuretic Peptide 198.6H, Total Protein 7.1, Albumin 3.9 08/15/21 18:19: Lactic Acid Level 1.73 08/15/21 19:04: Urine Color YELLOW, Urine Clarity CLEAR, Urine pH 6.5, Urine Specific [place] 1.015L, Urine Protein NEGATIVE, Urine Glucose (UA) NEGATIVE, Urine Ketones NEGATIVE, Urine Nitrite NEGATIVE, Urine Bilirubin NEGATIVE, Urine Urobilinogen 0.2, Urine Leukocyte Esterase NEGATIVE, Urine RBC (Auto) NEGATIVE, Urine RBC 10- 25H, Urine WBC NONE, Urine Crystals PRESENTH, Urine Calcium Oxalate Crystals MODERATEH, Urine Bacteria TRACE, Urine Casts NONE, Urine Mucus LARGEH, Urine Culture Indicated NO, Urine Opiates Screen NEGATIVE, Urine Oxycodone Screen NEGATIVE, Urine Methadone Screen NEGATIVE, Urine Propoxyphene Screen NEGATIVE, Urine Barbiturates Screen NEGATIVE, Ur Tricyclic Antidepressants Screen NEGATIVE, Urine Phencyclidine Screen NEGATIVE, Urine Amphetamines Screen POSITIVEH, Urine Methamphetamines Screen POSITIVEH, Urine Benzodiazepines Screen NEGATIVE, Urine Cocaine Screen NEGATIVE, Urine Cannabinoids Screen POSITIVEH 08/15/21 19:25: Troponin I < 0.30 08/16/21 04:18: White Blood Count 6.0, Red Blood Count 4.40, Hemoglobin 11.0L, Hematocrit 35L, Mean Corpuscular Volume 79L, Mean Corpuscular Hemoglobin 25, Mean Corpuscular Hemoglobin Concent 32, Red Cell Distribution Width 16.8H, Platelet Count 367, Mean Platelet Volume 8.9L, Immature Granulocyte % (Auto) 0, Neutrophils (%) (Auto) 47, Lymphocytes (%) (Auto) 39, Monocytes (%) (Auto) 8, Eosinophils (%) (Auto) 5, Basophils (%) (Auto) 1, Neutrophils # (Auto) 2.8, Lymphocytes # (Auto) 2.4, Monocytes # (Auto) 0.5, Eosinophils # (Auto) 0.3, Basophils # (Auto) 0.1, Immature Granulocyte # (Auto) 0.0, Sodium Level 138, Potassium Level 4.0, Chloride Level 110H, Carbon Dioxide Level 18L, Anion Gap 10, Blood Urea Nitrogen 16, Creatinine 0.94, Estimat Glomerular Filtration Rate 97, BUN/Creatinine Ratio 17, Glucose Level 93, Calcium Level 9.0, Troponin I < 0.028 Home Meds Active Reported Nitroglycerin 0.4 Mg Tab.subl 0.4 Mg SL UD PRN Metoprolol Succinate 25 Mg Tab.er.24h 25 Mg PO DAILY Omeprazole 40 Mg Capsule.dr 40 Mg PO BID Mirtazapine 45 Mg Tablet 45 Mg PO HS Venlafaxine HCl 37.5 Mg Tab 37.5 Mg PO DAILY Buspirone HCl 15 Mg Tablet 15 Mg PO BID Aspirin 81 Mg Tab.chew 81 Mg PO DAILY Assessment/Pt Instructions Take medications as prescribed. Follow up with your Machinist Mechanic. Stop using tobacco and methamphetamine. Return with worsening chest pain, shortness of breath, or if you feel like you are getting worse. Discharge Planning: <30 minutes discharge planning Discharge Instructions Discharge Diet: Low Sodium Diet Activity as Tolerated: Yes Consultations Cardiology Discharge Physical Examination Vital Signs Vital Signs Date Time Temp Pulse Resp B/P (MAP) Pulse Ox O2 Delivery O2 Flow Rate FiO2 08/16/21 11:38 36.0 85 18 150/106 Room Air 08/16/21 10:01 99 08/15/21 23:35 28 08/15/21 23:33 2.00 General Appearance: No Apparent Distress, WD/WN Respiratory: Lungs Clear, No Respiratory Distress Cardiovascular: Regular Rate, Rhythm, No Murmur Gastrointestinal: Normal Bowel Sounds, Soft Extremity: Normal Inspection, Non Tender Skin: Normal Color, Warm/Dry Neurologic/Psychiatric: Alert, Oriented x3 Allergies: Coded Allergies: alprazolam (Verified Allergy, Unknown, 08/15/21) ketorolac (Verified Allergy, Unknown, PT TAKES ASA AT HOME, 08/16/21) Discharge Summary Date of Admission Aug 15, 2021 at 21:07 Date of Discharge Discharge Date: Aug 16, 2021 Discharge Time: 12:14 Admission Diagnosis Chest pain Consults/Procedures Consulations Cardiology Discharge Diagnosis (1) Chest pain Status: Acute (2) CAD (coronary artery disease) Status: Acute (3) Methamphetamine abuse Status: Acute (4) Tobacco abuse Status: Acute GINO GARCIA MD Aug 16, 2021 12:12
== END 2021-08-16 12:35 | disposition home or self-care (01) ==
LOC: EDUNIT# 17:15 → ER FS 17:17 → ICU 21:07
PROVIDERS: ADMIT Internal Medicine; ATTEND Internal Medicine
DX: R07.89 Other chest pain (principal); R06.02 Shortness of breath; I25.10 Atherosclerotic heart disease of native coronary artery without angina pectoris; J44.1 Chronic obstructive pulmonary disease with (acute) exacerbation; F15.10 Other stimulant abuse, uncomplicated; R06.01 Orthopnea; I10 Essential (primary) hypertension; F17.200 Nicotine dependence, unspecified, uncomplicated; Z95.0 Presence of cardiac pacemaker; Z95.5 Presence of coronary angioplasty implant and graft; Z79.899 Other long term (current) drug therapy; Z79.82 Long term (current) use of aspirin; I44.4 Left anterior fascicular block; I45.89 Other specified conduction disorders
CPT/HCPCS: 36415; 71045; 71275; 80048; 80053; 80306; 81000; 83605; 83735; 83880; 84484; 85025; 85379; 85610; 85730; 93005; 93041; 93306; 93970; 94640; Q9967